=== PATIENT | female | born 2000 | race Caucasian/White ===

== ENCOUNTER 2024-02-17 22:24 | Outpatient (CLI) | payer OTHER ==
[2024-02-17 23:36] VITALS: BP 114/93; PULSE 98; RESP 16; TEMP 97.2
--- NOTE | 2024-03-07 09:08 | P.MSEPDOC ---
Presenting Problems - Arrival Data Date of Arrival on Unit: 02/17/24 Time of Arrival on Unit: 22:24 Mode of Transport: Ambulatory - Complaint OB-Reason for Admission/Chief Complaint: Possible Onset of Labor Comment: Patient comes in with complaints of abdominal tightening and cramping. Medical History - Information : 1 Para: 0 Term: 0 : 0 Abortions: Spontaneous or Elective: 0 Number of Living Children: 0 - Gestational Age Gestational Age by CESAR (wks/days): 38 Weeks and 0 Days Review of Systems - Review of Systems Constitutional: No problems Breast: No problems ENT: No problems Cardiovascular: No problems Respiratory: No problems Gastrointestinal: No problems Genitourinary: No problems Musculoskeletal: No problems Neurological: No problems Skin: No problems Vital Signs - Temperature Temperature: 97.2 F Temperature Source: Temporal Artery Scan - Pulse Pulse Oximetery Pulse Rate: 98 Pulse Assessment Method: Pulse Oximetry - Respirations Respiratory Rate: 16 Oxygen Delivery Method: Room Air O2 Sat by Pulse Oximetry: 98 - Blood Pressure Right Arm Blood Pressure: 114/93 Blood Pressure Mean: 100 Blood Pressure Source: Automatic Cuff Medical Screen Scoring - Cervical Exam Dilation (cm): 0 Membranes: Intact - Uterine Contractions Frequency From (mins): 3 Frequency To (mins): 7 Resting: Soft to palpation - Assessment - Baby A Baseline FHR: 140 Heart Rate - NICHD Category: Category I (Normal) NST: Reactive Physician Notification - Physician Notified Physician Notified Date: 02/17/24 Physician Notified Time: 22:55 Physician: Bennett Cronin Order Received: Yes (Discharge) Maternal Triage Index - Maternal Triage Index Presenting for scheduled procedure w/no complaint: No - Stat/Priority 1 Stat Priority 1: No - Urgent/Priority 2 Urgent Priority 2: No - Prompt/Priority 3 Prompt Priority 3: No - Non-Urgent/Priority 4 Non-Urgent Priority 4: Yes Criteria Met for Priority 4: Patient came in with complaints of cramping and tightening. Cervical exam is closed and posterior. Disposition - Disposition OB Disposition: Discharge to home Discharge Date: 02/17/24 Discharge Time: 23:06 I agree with the RN Medical Screening Exam: Yes Physician's MSE Comment: I have neither seen nor examined the patient. Case reviewed; plan agreed upon as documented in EMR&OBIX.: Yes Diagnosis: RELATED CONDITIONS, UNSPECIFIED, THIRD TRIMESTER
== END 2024-02-17 23:06 | disposition home or self-care (01) ==
LOC: FBPOP 22:24
PROVIDERS: ATTEND Obstetrics & Gynecology
CPT/HCPCS: 59025; 99213

== ENCOUNTER 2024-02-19 07:55 | Outpatient (CLI) | payer OTHER ==
[2024-02-19 09:20] VITALS: BP 131/80; PULSE 98; RESP 16; TEMP 96.5
[2024-02-19] MEDS ORDERED: LACTATED RINGERS 1,000 ML IV ONE ×2 (10:42)
[2024-02-19] MEDS ORDERED: ACETAMINOPHEN TAB 500 MG TAB PO STA (10:42)
--- NOTE | 2024-04-10 10:27 | P.MSEPDOC ---
Presenting Problems - Arrival Data Date of Arrival on Unit: 02/19/24 Time of Arrival on Unit: 07:55 Mode of Transport: Ambulatory - Complaint OB-Reason for Admission/Chief Complaint: Possible Onset of Labor Comment: Contrx since 529 Medical History - Information : 1 Para: 0 - Gestational Age Gestational Age by CESAR (wks/days): 38 Weeks and 2 Days Review of Systems - Review of Systems Constitutional: No problems Breast: No problems ENT: No problems Cardiovascular: No problems Respiratory: No problems Gastrointestinal: No problems Genitourinary: No problems Musculoskeletal: No problems Neurological: No problems Skin: No problems Vital Signs - Temperature Temperature: 96.5 F Temperature Source: Temporal Artery Scan - Pulse Right Sitting Brachial Pulse Rate: 98 Pulse Assessment Method: Pulse Oximetry - Respirations Respiratory Rate: 16 Oxygen Delivery Method: Room Air O2 Sat by Pulse Oximetry: 100 - Blood Pressure Right Arm Sitting Blood Pressure: 131/80 Blood Pressure Mean: 97 Blood Pressure Source: Automatic Cuff Medical Screen Scoring - Cervical Exam Dilation (cm): 0 Station: -2 Membranes: Intact - Uterine Contractions Resting: Soft to palpation - Assessment - Baby A Baseline FHR: 140 Heart Rate - NICHD Category: Category I (Normal) NST: Reactive Physician Notification - Physician Notified Physician Notified Date: 02/19/24 Physician Notified Time: 08:22 Physician: Annalise Flores New Order Received: Yes - Notification Comment Comment: 821: Spk c\Dr. Flores, present on unit, advsd of pts arrival to triage, physician aware of pt. Advsd of SVE and pts reported discomfort, Cat 1 FHT, reactive NST. Order rec'd to recheck cervix in one hour and pt may be discharged home c\no change in SVE and Cat 1 FHT. Maternal Triage Index - Maternal Triage Index Presenting for scheduled procedure w/no complaint: No - Stat/Priority 1 Stat Priority 1: No - Urgent/Priority 2 Urgent Priority 2: No - Prompt/Priority 3 Prompt Priority 3: No - Non-Urgent/Priority 4 Non-Urgent Priority 4: Yes Criteria Met for Priority 4: Contractions, 38 2/7 Disposition - Disposition OB Disposition: Discharge to home, Written follow up instructions reviewed Discharge Date: 02/19/24 Discharge Time: 09:18 I agree with the RN Medical Screening Exam: Yes Case reviewed; plan agreed upon as documented in EMR&OBIX.: Yes Diagnosis: FALSE LABOR AT OR AFTER 37 COMPLETED WEEKS OF GESTATION
== END 2024-02-19 09:18 | disposition home or self-care (01) ==
LOC: FBPOP 07:55
PROVIDERS: ATTEND Obstetrics & Gynecology Obstetrics
CPT/HCPCS: 59025; 99213

== ENCOUNTER 2024-02-25 08:45 | Outpatient (CLI) | payer OTHER ==
[2024-02-25] MEDS: FLUCONAZOLE 150 MG TAB PO STA (09:46)
[2024-02-25 11:01] VITALS: BP 122/85; PULSE 88; RESP 16; TEMP 97.7
--- NOTE | 2024-04-10 10:19 | P.MSEPDOC ---
Presenting Problems - Arrival Data Date of Arrival on Unit: 02/25/24 Time of Arrival on Unit: 08:42 Mode of Transport: Ambulatory - Complaint OB-Reason for Admission/Chief Complaint: Rule Out SROM Comment: Patient of Dr Flores, 39 weeks presents with c/o possible SROM. Patient states she had a small "trickle" and hasn't noticed anything since. Patient denies bleeding or loss of fluid, + movement. Dr Flores present on unit and aware patient is here. Medical History - Information : 1 Para: 0 Term: 0 : 0 Abortions: Spontaneous or Elective: 0 Number of Living Children: 0 - Gestational Age Gestational Age by CESAR (wks/days): 39 Weeks and 1 Days Review of Systems - Review of Systems Constitutional: No problems Breast: No problems ENT: No problems Cardiovascular: No problems Respiratory: No problems Gastrointestinal: No problems Genitourinary: No problems Musculoskeletal: No problems Neurological: No problems Skin: No problems Vital Signs - Temperature Temperature: 97.7 F - Pulse Pulse Oximetery Pulse Rate: 88 Pulse Assessment Method: Automatic Cuff - Respirations Respiratory Rate: 16 Oxygen Delivery Method: Room Air O2 Sat by Pulse Oximetry: 100 - Blood Pressure Sitting Blood Pressure: 122/85 Blood Pressure Mean: 97 Blood Pressure Source: Automatic Cuff Medical Screen Scoring - Cervical Exam Dilation (cm): 0 Station: -3 Membranes: Intact - Uterine Contractions Intensity: Absent Resting: Soft to palpation - Assessment - Baby A Baseline FHR: 135 Heart Rate - NICHD Category: Category I (Normal) NST: Reactive Physician Notification - Physician Notified Physician Notified Date: 02/25/24 Physician Notified Time: 08:42 Physician: Annalise Flores New Order Received: Yes - Notification Comment Comment: Spoke to Dr Flores in person. report of SVE closed, thick, high and posterior. Patient dose have a white chunky looking discharge and redness present with c/o of itching when asked, orders received to give a dose of Diflucan 150mg PO once now and pt may be discharged home, Patient to keep scheduled appointment in the office Maternal Triage Index - Non-Urgent/Priority 4 Non-Urgent Priority 4: Yes Criteria Met for Priority 4: Spoke to Dr Flores in person. report of SVE closed, thick, high and posterior. Patient dose have a white chunky looking discharge and redness present with c/o of itching when asked, orders received to give a dose of Diflucan 150mg PO once now and pt may be discharged home, Patient to keep scheduled appointment in the office Disposition - Disposition OB Disposition: Discharge to home Discharge Date: 02/25/24 Discharge Time: 09:50 I agree with the RN Medical Screening Exam: Yes Case reviewed; plan agreed upon as documented in EMR&OBIX.: Yes Diagnosis: RELATED CONDITIONS, UNSPECIFIED, THIRD TRIMESTER
== END 2024-02-25 09:50 ==
LOC: FBPOP 08:45
PROVIDERS: ATTEND Obstetrics & Gynecology Obstetrics
CPT/HCPCS: 59025; 84112; 99213

== ENCOUNTER 2024-03-02 21:45 | Outpatient (CLI) | payer OTHER ==
[2024-03-03 00:14] VITALS: BP 118/77; PULSE 81; RESP 16; TEMP 96.9
--- NOTE | 2024-03-18 20:39 | P.MSEPDOC ---
Presenting Problems - Arrival Data Date of Arrival on Unit: 03/02/24 Time of Arrival on Unit: 21:45 Mode of Transport: Ambulatory - Complaint OB-Reason for Admission/Chief Complaint: Possible Onset of Labor Comment: Pt presents to triage with c/o contx that started aroud 3 hours ago that are 2-3 minutes apart. Pt rating contx pain 7 out of 10. Medical History - Information : 1 Para: 0 Term: 0 : 0 Abortions: Spontaneous or Elective: 0 Number of Living Children: 0 - Gestational Age Gestational Age by CESAR (wks/days): 40 Weeks and 1 Days Review of Systems - Review of Systems Constitutional: No problems Breast: No problems ENT: No problems Cardiovascular: No problems Respiratory: No problems Gastrointestinal: No problems Genitourinary: No problems Musculoskeletal: No problems Neurological: No problems Skin: No problems Vital Signs - Temperature Temperature: 96.9 F Temperature Source: Temporal Artery Scan - Pulse Pulse Oximetery Pulse Rate: 81 Pulse Assessment Method: Pulse Oximetry - Respirations Respiratory Rate: 16 Oxygen Delivery Method: Room Air O2 Sat by Pulse Oximetry: 98 - Blood Pressure Right Arm Blood Pressure: 118/77 Blood Pressure Mean: 90 Blood Pressure Source: Automatic Cuff Medical Screen Scoring - Cervical Exam Membranes: Intact - Uterine Contractions Intensity: Absent Resting: Soft to palpation - Assessment - Baby A Baseline FHR: 135 Heart Rate - NICHD Category: Category I (Normal) NST: Reactive Physician Notification - Physician Notified Physician Notified Date: 03/02/24 Physician Notified Time: 23:21 Physician: Yessy Duong New Order Received: Yes - Notification Comment Comment: Dr. Duong called back at home, reported on pt complaints, GA, G/P, VS, FHT with one variable noted, contraction pattern, cervical exam remains unchanged after one hour. Per Dr. Duong watch pt for 30 minutes, if FHT remains CAT 1, pt may be d/c home Maternal Triage Index - Maternal Triage Index Presenting for scheduled procedure w/no complaint: No - Stat/Priority 1 Stat Priority 1: No - Urgent/Priority 2 Urgent Priority 2: No - Prompt/Priority 3 Prompt Priority 3: No - Non-Urgent/Priority 4 Non-Urgent Priority 4: Yes Criteria Met for Priority 4: Pt presents to triage with c/o contx that started aroud 3 hours ago that are 2-3 minutes apart. Pt rating contx pain 7 out of 10. Disposition - Disposition OB Disposition: Discharge to home Discharge Date: 03/03/24 Discharge Time: 00:00 I agree with the RN Medical Screening Exam: Yes Physician's MSE Comment: I have neither seen nor examined the patient Case reviewed; plan agreed upon as documented in EMR&OBIX.: Yes Diagnosis: FALSE LABOR, UNSPECIFIED
== END 2024-03-03 | disposition home or self-care (01) ==
LOC: FBPOP 21:45
PROVIDERS: ATTEND Obstetrics & Gynecology
CPT/HCPCS: 59025; 99213

== ENCOUNTER 2024-03-05 05:38 | Inpatient (IN) | payer OTHER ==
[2024-03-05] MEDS ORDERED: TRANEXAMIC 1,000 MG/100ML-NACL 1,000 MG in EMPTY BAG 1 BAG IV PRN (05:59)
[2024-03-05] MEDS ORDERED: TERBUTALINE 1 MG/ML VIAL SQ PRN (05:59)
[2024-03-05] MEDS ORDERED: CARBOPROST TROMETHAMINE 250 MCG/ML 1 ML AMP IM PRN (05:59)
[2024-03-05] MEDS ORDERED: METHYLERGONOVINE 0.2 MG/ML 1 ML AMP IM PRN (05:59)
[2024-03-05] MEDS ORDERED: OXYTOCIN 10 UNIT/ML 1 ML VIAL IM PRN (05:59)
[2024-03-05] MEDS ORDERED: miSOPROStoL 200 MCG TAB RECTAL PRN (05:59)
[2024-03-05] MEDS ORDERED: miSOPROStoL 200 MCG TAB PO PRN (05:59)
[2024-03-05] MEDS: LACTATED RINGERS 1,000 ML IV SCH (06:18)
[2024-03-05 06:19] LABS: Basophils % (A) 0 %; Eosinophils # (A) 0.1 k/uL (0-0.7); Eosinophils % (A) 1 %; HCT 38.7 % (34.0-46.0); HGB 12.2 gm/dL (11.4-16.0); Lymphocytes % (A) 17 %; MCH 29.1 pg (25.0-35.0); MCHC 31.5 g/dL (31.0-37.0); MCV 92.5 fL (80.0-100.0); Mean Platelet Volume 9.4; Monocytes # (A) 0.9 k/uL (0-1.0); Monocytes % (A) 8 %; Neutrophils # (A) 8.6 k/uL (1.3-7.7); Neutrophils % (A) 72 %; Platelet Count 273 k/uL (150-450); RBC 4.19 m/uL (3.80-5.40); RDW 13.3 % (11.5-15.5)
[2024-03-05] MEDS: OXYTOCIN 30 UNITS/500 ML NS 30 UNIT in SALINE 1 500ML.BAG IV SCH (06:30)
[2024-03-05] MEDS: NALBUPHINE 10 MG/ML (10 ML MDV) IV PRN (12:00)
[2024-03-05] MEDS ORDERED: fentaNYL (PF) 50 MCG/ML 5 ML AMP ONE (13:49)
[2024-03-05] MEDS ORDERED: SODIUM CHLORIDE 0.9% 250 ML BAG ONE (13:49)
[2024-03-05] MEDS ORDERED: ROPIVACAINE 5 MG/ML 30 ML VIAL ONE (13:49)
--- NOTE | 2024-03-05 20:13 | P.HPOB ---
History of Present Illness H&P Date: 03/05/24 Chief Complaint: IUP at 40-3/7 weeks, oligohydramnios 23-year-old 1 para 1 at 40-2/7 weeks that presents to labor and delivery for induction of labor secondary to postdates and oligohydramnios. Patient had a routine visit yesterday where testing was normal, FESTUS was noted to be 5.7. Patient has been receiving routine care which has been essentially uncomplicated. Patient has noted good movement, Review of Systems Constitutional: Denies chills, Denies fatigue, Denies fever Ears, nose, mouth and throat: Denies headache Cardiovascular: Reports leg edema Respiratory: Denies dyspnea Gastrointestinal: Denies nausea, Denies vomiting Genitourinary: Reports Past Medical History Past Medical History: No Reported History History of Any Multi-Drug Resistant Organisms: None Reported Past Surgical History: No Surgical Hx Reported Past Anesthesia/Blood Transfusion Reactions: No Reported Reaction Past Psychological History: No Psychological Hx Reported Smoking Status: Never smoker Past Alcohol Use History: None Reported Medications and Allergies Home Medications Medication Instructions Recorded Confirmed Type Vit No.179/Iron/Folic 1 each PO DAILY 02/17/24 03/02/24 History [ Tablet] Allergies Allergy/AdvReac Type Severity Reaction Status Date / Time No Known Allergies Allergy Verified 03/05/24 05:58 Exam Osteopathic Statement: *. No significant issues noted on an osteopathic structural exam other than those noted in the History and Physical/Consult. Intake and Output 03/05/24 03/05/24 03/05/24 06:59 14:59 22:59 Other: # Voids 4 Weight 62.596 kg Targeted physical exam is performed this date General Is well-nourished well- developed female in no acute distress, breathing is nonlabored, heart has a regular and rhythm, abdomen is gravid and appropriate for gestational age, on cervical exam she is 1/80/-2 station amniotomy is performed and clear fluid was obtained. heart tones are noted to be category 1 and she is florin irregularly. Results Result Diagrams: 03/05/24 06:05 Abnormal Lab Results - Last 24 Hours (Table) 03/05/24 Range/Units 06:05 WBC 12.0 H (3.8-10.6) k/uL Neutrophils # 8.6 H (1.3-7.7) k/uL Assessment and Plan (1) Post-dates Current Visit: Yes Status: Acute Code(s): O48.0 - POST-TERM SNOMED Code(s): 21468954 (2) Oligohydramnios Current Visit: Yes Status: Acute Code(s): O41.00X0 - OLIGOHYDRAMNIOS, UNSP TRIMESTER, NOT APPLICABLE OR UNSP SNOMED Code(s): 11333703 Plan: 23-year-old 1 para 0 at 40-3/7 weeks presents for induction of labor secondary to postdates and oligohydramnios. Patient is admitted and Pitocin induction of labor has begun per hospital protocol. Options for analgesia are discussed and she will consider.
[2024-03-05] MEDS: LIDOCAINE 0.5% (PF) 5 MG/ML (50 ML SDV) SQ PRN (21:15)
[2024-03-05] MEDS ORDERED: diphenhydrAMINE 50 MG/ML 1 ML VIAL IVP PRN ×2 (21:34)
[2024-03-05] MEDS ORDERED: diphenhydrAMINE 25 MG CAP PO PRN (21:34)
[2024-03-05] MEDS ORDERED: ZOLPIDEM 5 MG TAB PO PRN (21:34)
[2024-03-05] MEDS ORDERED: SIMETHICONE 80 MG CHEWABLE PO PRN (21:34)
[2024-03-05] MEDS ORDERED: ACETAMINOPHEN TAB 325 MG TAB PO PRN (21:34)
[2024-03-05] MEDS ORDERED: diphenhydrAMINE 50 MG CAP PO PRN (21:34)
[2024-03-05] MEDS ORDERED: LANOLIN CREAM 1 GM TUBE TOPICAL PRN (21:34)
[2024-03-05] MEDS ORDERED: HYDROCORTISONE 2.5% RECTAL CREAM 30 GM TUBE RECTAL PRN (21:34)
--- NOTE | 2024-03-05 21:34 | P.PROBDLV ---
Vaginal Delivery Note - . Vaginal Delivery Note: 23-year-old 1 para 0 at 40-3/7 weeks that presents to labor and delivery for induction of labor secondary to postdates and oligohydramnios. Patient was admitted to labor and delivery and Pitocin induction of labor was begun. Patient underwent amniotomy and clear fluid was obtained. Patient made slow progress but did become uncomfortable and request epidural placement. Epidural was placed without difficulty by the anesthesia department. Patient made good progress toward complete. Once completely dilated patient began pushing and had a normal spontaneous vaginal delivery of a viable male at 5 after midline episiotomy was performed. After 2-minute delay the umbilical cord was doubly clamped and cut, cord blood was then taken. The placenta was delivered spontaneously intact with a three-vessel cord being noted. Uterus was noted to be firm and below the umbilicus. Spontaneous cry was noted at . On inspection of the episiotomy site no extension was appreciated, area was injected with lidocaine and repaired with the use of fashion with 3-0 Rapide. Hemostasis was noted after closure episiotomy. Bladder was drained for approximately 100 cc of clear yellow urine via red rubber catheter. All counts were noted be correct x 2 at the end of the delivery. Patient and tolerated delivery well and are resting comfortably.
[2024-03-05] MEDS: IBUPROFEN 600 MG TAB PO SCH (21:59)
[2024-03-05] MEDS: BENZOCAINE/MENTHOL SPRAY 1 GM/SPRAY AEROSOL TOPICAL PRN (22:00)
--- NOTE | 2024-03-06 13:08 | P.PNOBGVD ---
Subjective - Subjective Principal diagnosis: day #1, status post normal spontaneous vaginal delivery Interval history: Patient is doing well this morning. She is ambulating and voiding without difficulty. She did note some dizziness last night with standing. Lochia is noted to be minimal to moderate. Breast-feeding is going well. Patient reports: Reports appetite normal, Reports voiding normally, Reports pain well controlled, Reports ambulating normally [place]: doing well Objective - Latest Vital Signs Latest vital signs: Vital Signs Temp Pulse Resp BP Pulse Ox 03/06/24 08:20 84 16 116/74 97 03/06/24 03:42 98.0 F 78 16 118/77 95 03/06/24 00:00 77 16 108/65 97 03/05/24 23:25 99.6 F 100 16 117/71 03/05/24 23:10 100 16 116/72 03/05/24 22:55 100.1 F H 110 H 16 115/66 03/05/24 22:40 112 H 16 129/63 03/05/24 22:25 100.0 F H 110 H 16 117/73 03/05/24 22:10 108 H 16 114/68 03/05/24 21:55 99.5 F 98 16 115/70 03/05/24 21:40 108 H 16 121/75 03/05/24 21:25 99.4 F 111 H 18 115/63 Intake and Output 03/05/24 03/06/24 03/06/24 22:59 06:59 14:59 Intake Total 196.6 Output Total 200 300 Balance -3.4 -300 Intake: Intake, IV Titration 196.6 Amount Oxytocin 30 Units/500 ml 196.6 Ns 30 unit In Saline 1 500ml.bag @ Per Protocol IV .Q0M [facility] Rx#:[id number] Output: Urine 100 Estimated Blood Loss 100 Output, Quantitative 300 Blood Loss Other: # Voids 1 - Exam Extremities: Present: normal, edema Abdomen: Present: normal appearance, soft Uterus: Present: normal, firm Assessment and Plan (1) Post-dates Current Visit: Yes Status: Acute Code(s): O48.0 - POST-TERM SNOMED Code(s): 12200268 (2) Oligohydramnios Current Visit: Yes Status: Acute Code(s): O41.00X0 - OLIGOHYDRAMNIOS, UNSP TRIMESTER, NOT APPLICABLE OR UNSP SNOMED Code(s): 96536139 (3) Normal vaginal delivery Current Visit: Yes Status: Acute Code(s): O80 - ENCOUNTER FOR FULL-TERM UNCOMPLICATED DELIVERY SNOMED Code(s): 24076912 (4) Obstetrical laceration, second degree Current Visit: Yes Status: Acute Code(s): O70.1 - SECOND DEGREE PERINEAL LACERATION DURING DELIVERY SNOMED Code(s): 3377742 Plan: Patient is doing well . Encourage increase ambulation. Will monitor today and anticipate discharge home tomorrow. Continue routine care.
[2024-03-06] MEDS: SENNOSIDES-DOCUSATE SODIUM 1 EACH TAB PO SCH (19:51)
[2024-03-06] MEDS: PRENATAL VIT-IRON-FOLIC ACID 1 EACH TABLET PO SCH (19:54)
[2024-03-07 08:53] VITALS: BP 110/65; PULSE 69; RESP 15; TEMP 97.9
--- NOTE | 2024-03-07 09:52 | P.DS ---
Providers Date of admission: 03/05/24 05:38 Expected date of discharge: 03/07/24 Attending physician: Annalise Flores Primary care physician: Stated None - Discharge Diagnosis(es) (1) Post-dates Current Visit: Yes Status: Acute (2) Oligohydramnios Current Visit: Yes Status: Acute (3) Normal vaginal delivery Current Visit: Yes Status: Acute (4) Obstetrical laceration, second degree Current Visit: Yes Status: Acute Hospital Course: 23-year-old 1 now para 1 that presented to labor and delivery at 40-3/7 weeks for induction of labor secondary to postdates and oligohydramnios. Patient was seen for visit prior to admission with amniotic fluid index of 5.7. Patient was receiving routine care with myself which is essentially uncomplicated. Patient was admitted and Pitocin induction of labor was begun. Patient underwent amniotomy and scant fluid was obtained. It did appear clear. Patient made slow progress but did become uncomfortable. Patient requested epidural placement. Patient made slow progress through labor. Patient did progressed to complete dilation. Once completely dilated patient began pushing and had a normal spontaneous vaginal delivery of a viable female at 2114. Patient did undergo a midline episiotomy, no extension was appreciated. It was repaired without difficulty. Patient has done well . She is ambulating and voiding without difficulty on this day #2. She is tolerating a regular diet without nausea or vomiting. Her lochia is minimal to moderate. She states she is ready for discharge home. Patient Condition at Discharge: Good Plan - Discharge Summary New Discharge Prescriptions: No Action Vit No.179/Iron/Folic [ Tablet] 1 each PO DAILY Discharge Medication List Vit No.179/Iron/Folic [ Tablet] 1 each PO DAILY 02/17/24 [History] Follow up Appointment(s)/Referral(s): Annalise Flores DO [Doctor of Osteopathic Medicine] - 04/16/24 1:00 pm Patient Instructions/Handouts: Vaginal Delivery (DC), Vaginal Delivery (GEN) Activity/Diet/Wound Care/Special Instructions: No intercourse, tampons or . No driving for two weeks. Call with any fever, shakes or chills, with any pain not alleviated by over the counter meds, or with any questions or concerns. [id number] ibuprofen 600 mg or 3 tablets every 6 hours as needed for pain. Discharge Disposition: HOME SELF-CARE
== END 2024-03-07 14:30 | disposition home or self-care (01) | DRG 806 ==
LOC: 4FBP 05:38
PROVIDERS: ADMIT Obstetrics & Gynecology Obstetrics; ATTEND Obstetrics & Gynecology Obstetrics
PROC: 10907ZC Drainage of Amniotic Fluid, Therapeutic from Products of Conception, Via Natural or Artificial Opening (ICD-10-PCS; principal; 2024-03-05)
PROC: 0W8NXZZ Division of Female Perineum, External Approach (ICD-10-PCS; principal; 2024-03-05)
PROC: 3E033VJ Introduction of Other Hormone into Peripheral Vein, Percutaneous Approach (ICD-10-PCS; principal; 2024-03-05)
PROC: 10E0XZZ Delivery of Products of Conception, External Approach (ICD-10-PCS; principal; 2024-03-05)
DX: O48.0 Post-term pregnancy (principal); O41.03X0 Oligohydramnios, third trimester, not applicable or unspecified; Z3A.40 40 weeks gestation of pregnancy; Z37.0 Single live birth